=== PATIENT | male | born 1940 | race African-American/Black ===

== ENCOUNTER 2018-08-06 13:46 | Outpatient (CLI) | payer OTHER, MEDICARE | END 2018-08-06 18:56 | disposition home or self-care (01) | LOC: EDBD 13:46 → SCA 13:46 | PROVIDERS: ATTEND Internal Medicine | DX: I08.1 Rheumatic disorders of both mitral and tricuspid valves (principal); I10 Essential (primary) hypertension | CPT/HCPCS: 93306 ==